=== PATIENT | male | born 1990 | race Caucasian/White ===

== ENCOUNTER 2018-07-07 03:54 | Emergency (ER) | payer MEDICAID, OTHER ==
[~2018-07-07] VITALS: Ht 182.9 cm; Wt 70.0 kg
--- NOTE | 2018-07-07 04:10 | NUR ---
27 Y/O MALE CRISTEL CARRILLO AFTER GOING [place] TO [facility] [address] [place] AND ASKING FOR HELP. THEY CALLED 911. PT REPORTS HEAVY ETOH TONIGHT ACCOMPANIED WITH MARIJUANA AND MDMA USE FOR THE PAST 3 DAYS. PT IS DENIES ANY COMPLAINTS, ASKS ERP IF HE COULD "GET SOME HELP WITH HIS COURT DATE IN A FEW WEEKS FOR HIS THIRD DUI", PT ALSO ASKING ERP FOR DRUGS "ARE YOU GOING TO GIVE ME ANY GOOD DRUGS WHILE I'M HERE". PT IS ALERT AND ORIENTED, SOMEWHAT HALLUCINATING. ALL VITALS STABLE, TACHY AT 122. PT IN [facility] ROOM FOR OBSERVATION. EMS ESTABLISHED IV AND ADMINISTERED 500ML OF NS. DR. HIDALGO AT BEDSIDE EVALUATING PT
[2018-07-07 04:51] LABS: ANION GAP 12 mmol/L (5-15); CALCIUM 8.3 mg/dL (8.5-10.1); CHLORIDE 109 mmol/L (98-107)
[2018-07-07 04:57] LABS: CREATINE KINASE, TOTAL 136 U/L (39-308); CREATININE 1.05 mg/dL (0.7-1.3)
[2018-07-07 05:30] VITALS: BP 136/84
--- NOTE | 2018-07-07 05:31 | NUR ---
PT RESTING ON [place], TALKING TO HIMSELF. KEEPS ASKING STAFF FOR DRUGS, STATING "HEY ARE YOU GONNA GIVE ME SOME DRUGS OR WHAT? DO YOU HAVE SOME XANAX?". AWAITING PT TO SOBER UP FOR SAFE DISCHARGE.
--- NOTE | 2018-07-07 05:56 | NUR ---
PT ASKING WHERE HIS WALLET AND CELL PHONE ARE. PT POCKETS WERE CHECKED UPON ARRIVAL FOR AN ID, WELL HIS NAOMI PACK. NO ID OR PHONE WERE NOTED. PT TOLD THIS INFORMATION.
--- NOTE | 2018-07-07 05:56 | NUR ---
PT AWAKE AND ALERT. ASKING WHAT HAPPENED. PT APOLOGETIC. AMBULATORY WITH A STEADY GAIT. IV REMOVED AND PT PROVIDED WITH INFORMATION ON ALCOHOL AND DRUG REHAB.
--- NOTE | 2018-07-07 05:57 | NUR ---
Patient/Caregiver given discharge instructions and they have confirmed that they understand the instructions. Patient ambulatory with steady gait.
== END 2018-07-07 06:00 | disposition home or self-care (01) ==
LOC: ED 05:30
DX: F14.122 Cocaine abuse with intoxication with perceptual disturbance (principal); F15.222 Other stimulant dependence with intoxication with perceptual disturbance; F16.122 Hallucinogen abuse with intoxication with perceptual disturbance; F41.9 Anxiety disorder, unspecified; G92 Toxic encephalopathy
CPT/HCPCS: 36415; 80048; 80307; 82550; 99283